=== PATIENT | male | born 1930 | race Caucasian/White ===

== ENCOUNTER → 2017-03-05 | Outpatient (CLI) | payer MEDICARE ==
[~2017-03-05] MED LIST: ASPI1TAB2 PO; DIAZ5TAB PO; POTASSIUM; TRIAMTERENE
== END | disposition home or self-care (01) ==
LOC: STAR 08:49
PROVIDERS: ATTEND Orthopaedic Surgery
DX: Z01.818 Encounter for other preprocedural examination (principal); M17.11 Unilateral primary osteoarthritis, right knee
CPT/HCPCS: 87081

== ENCOUNTER 2017-03-17 07:31 | Inpatient (IN) | payer MEDICARE ==
[~2017-03-17] VITALS: Ht 175.3 cm; Wt 83.1 kg
[~2017-03-17 07:31] MED LIST changes: +ASPI-691 PO; -ASPI1TAB2 PO; +EPINEPHRINE 1 MG/ML, 1ML ONE; +KETOROLAC 60 MG/2 ML ONE; +ROPIvacaine/PF 0.2%, 20 ML ONE; +SODIUM CHLORIDE 0.9% 50 ML ONE; +TRANEXAMIC ACID 100 MG/ML, 10ML ONE
[2017-03-17 08:17] VITALS: BP 174/83
[2017-03-17] MEDS ORDERED: LACTATED RINGERS 1,000 ML IV SCH (08:22)
[2017-03-17] MEDS ORDERED: PROMETHAZINE 25 MG/ML, 1ML IV PRN (08:30)
[2017-03-17] MEDS ORDERED: ALBUTEROL SULFATE 2.5 MG/3 ML NPPB PRN (08:30)
[2017-03-17] MEDS ORDERED: MEPERIDINE/PF 25MG/0.5ML IVPush PRN (08:30)
[2017-03-17] MEDS ORDERED: DIAZEPAM 5 MG/ML, 2ML IVPush PRN (08:30)
[2017-03-17] MEDS ORDERED: ONDANSETRON 2MG/ML, 2ML IVPush PRN (08:30)
[2017-03-17] MEDS ORDERED: ACETAMINOPHEN 325 MG TABLET PO PRN (08:30)
[2017-03-17] MEDS ORDERED: LABETALOL 5MG/ML, 20ML IV PRN (08:30)
[2017-03-17] MEDS ORDERED: EPHEDRINE 50 MG/ML, 1ML IVPush PRN (08:30)
[2017-03-17] MEDS ORDERED: HYDROcodone/APAP 7.5-325MG/15ML UDC PO PRN (08:30)
[2017-03-17] MEDS ORDERED: OXYcodone 5 MG/5 ML ORAL.SOL UDC PO PRN (08:30)
[2017-03-17] MEDS ORDERED: FENTANYL PF 100 MCG/2ML IV PRN (08:30)
[2017-03-17] MEDS ORDERED: HYDROmorphone 1 MG/ML, 1ML IV PRN ×2 (08:30→09:30)
[2017-03-17] MEDS ORDERED: METOPROLOL 1 MG/ML, 5ML IV PRN (08:30)
[2017-03-17] MEDS ORDERED: hydrALAzine 20 MG/ML, 1ML IV PRN ×2 (08:30→18:30)
[2017-03-17] MEDS: D5%-0.45% NACL 1,000 ML IV SCH (09:07)
[2017-03-17] MEDS ORDERED: ONDANSETRON 2MG/ML, 2ML IV PRN (09:30)
[2017-03-17] MEDS ORDERED: ONDANSETRON 4 MG TABLET PO PRN (09:30)
[2017-03-17] MEDS ORDERED: SCOPOLAMINE PATCH, 1.5MG PATCH.TD72 TD SCH (09:30)
[2017-03-17] MEDS ORDERED: MAGNESIUM HYDROXIDE 8%, 30ML UDC PO PRN (09:30)
[2017-03-17] MEDS ORDERED: PROMETHAZINE 25 MG/ML, 1ML IM PRN (09:30)
[2017-03-17] MEDS ORDERED: LORazepam 1MG TABLET PO PRN (09:30)
[2017-03-17] MEDS ORDERED: SENNA/DOCUSATE TABLET PO PRN (09:30)
[2017-03-17] MEDS ORDERED: ZOLPIDEM 5MG TABLET PO PRN (09:30)
[2017-03-17] MEDS ORDERED: BISACODYL 10 MG SUPP PR PRN (09:30)
[2017-03-17] MEDS ORDERED: PROMETHAZINE 12.5 MG SUPP PR PRN (09:30)
[2017-03-17] MEDS ORDERED: DIPHENHYDRAMINE 50 MG CAPSULE PO PRN (09:30)
[2017-03-17] MEDS ORDERED: OXYcodone IR 5MG TABLET PO PRN (09:30)
[2017-03-17] MEDS ORDERED: ALUMINUM/MAG/SIMETHICONE 30 ML UDC PO PRN (09:30)
[2017-03-17] MEDS ORDERED: DIAZEPAM 5 MG TABLET PO PRN (09:30)
[2017-03-17] MEDS ORDERED: PROPOFOL 10 MG/ML, 20ML ONE (09:38)
[2017-03-17] MEDS ORDERED: ONDANSETRON 2MG/ML, 2ML ONE (09:38)
[2017-03-17] MEDS ORDERED: MIDAZOLAM 1 MG/ML, 2ML ONE (09:38)
[2017-03-17] MEDS ORDERED: DEXAMETHASONE 4 MG/ML, 1ML ONE (09:38)
[2017-03-17] MEDS ORDERED: CEFAZOLIN 1,000 MG ONE (09:38)
[2017-03-17] MEDS ORDERED: FENTANYL PF 100 MCG/2ML ONE (09:38)
[2017-03-17] MEDS ORDERED: TRANEXAMIC ACID 1,000 MG in SODIUM CHLORIDE 0.9% 100 ML IVPB ONE (12:15)
[2017-03-17] MEDS ORDERED: SCOPOLAMINE PATCH, 1MG PATCH.TD72 TD SCH (14:30)
[2017-03-17] MEDS: ACETAMINOPHEN 500 MG TABLET PO SCH ×2 (14:45→22:34)
[2017-03-17] MEDS: TAMSULOSIN 0.4 MG CAP.ER.24H PO SCH (14:45)
[2017-03-17] MEDS ORDERED: SODIUM CHLORIDE 0.9% 1,000 ML IVBOLUS ONE (17:00)
[2017-03-17 18:11] LABS: HEMATOCRIT 45.9 % (39.2-51.8); HEMOGLOBIN 15.4 g/dL (13.7-18.0); WHITE BLOOD COUNT 13.9 x10^3/uL (3.4-10)
[2017-03-17] MEDS: ASPIRIN 81 MG TABLET EC PO SCH (18:17)
[2017-03-17] MEDS: CEFAZOLIN PMX 2GM/50ML 50 ML IVPB SCH (18:17)
[2017-03-17 18:20] LABS: DIFF TOTAL CELLS COUNTED 100 CELL DIFF
[2017-03-17 18:22] LABS: BLOOD UREA NITROGEN 14 mg/dL (7-18)
[2017-03-17 18:25] LABS: ASPARTATE AMINO TRANSFERASE 18 U/L (15-37)
[2017-03-17 18:29] LABS: IS PT STATUS REG ER OR PRE ER? NO
[2017-03-17 18:45] LABS: VERIFY COUNTS? YES
[2017-03-17 20:38] VITALS: BP 111/67
[2017-03-18 00:22] VITALS: BP 103/53
[2017-03-18] MEDS ORDERED: POTASSIUM CHLORIDE 20 MEQ TAB.ER.PRT PO ONE (00:30)
[2017-03-18] MEDS: CEFAZOLIN PMX 2GM/50ML 50 ML IVPB SCH (01:42)
[2017-03-18] MEDS: D5%-0.45% NACL 1,000 ML IV SCH ×2 (01:42→11:30)
[2017-03-18 05:03] VITALS: BP 116/65
[2017-03-18 05:12] VITALS: BP 116/65
[2017-03-18] MEDS ORDERED: DEXAMETHASONE 4 MG/ML, 1ML IVPush SCH (06:00)
[2017-03-18] MEDS: ASPIRIN 81 MG TABLET EC PO SCH (06:01)
[2017-03-18] MEDS: ACETAMINOPHEN 500 MG TABLET PO SCH ×2 (06:01→13:58)
[2017-03-18 06:20] LABS: BLOOD UREA NITROGEN 18 mg/dL (7-18)
[2017-03-18 07:17] VITALS: BP 133/70
[2017-03-18] MEDS: TAMSULOSIN 0.4 MG CAP.ER.24H PO SCH (08:44)
[2017-03-18] MEDS ORDERED: DOCUSATE 100 MG CAPSULE PO SCH (09:00)
[2017-03-18] MEDS ORDERED: TRIAMTERENE-HCTZ 37.5/25 MG TABLET PO SCH (09:00)
[2017-03-18] MEDS ORDERED: KETOROLAC 30 MG/1 ML IV SCH (09:30)
[2017-03-18 14:53] VITALS: BP 147/71
[2017-03-18] MEDS ORDERED: OXYC5CAP2 PO (15:02)
== END 2017-03-18 15:15 | disposition home or self-care (01) | DRG 470 ==
LOC: ORIP 07:31 → 4NOR 13:26 → DCLOUNGE 03-18 14:57
PROVIDERS: ADMIT Orthopaedic Surgery; ATTEND Orthopaedic Surgery
PROC: 0SRC0J9 Replacement of Right Knee Joint with Synthetic Substitute, Cemented, Open Approach (ICD-10-PCS; principal; 2017-03-17 10:30)
DX: M17.11 Unilateral primary osteoarthritis, right knee (principal); I10 Essential (primary) hypertension; R32 Unspecified urinary incontinence; R55 Syncope and collapse; F41.9 Anxiety disorder, unspecified; Z82.0 Family history of epilepsy and other diseases of the nervous system; Z85.46 Personal history of malignant neoplasm of prostate; Z90.79 Acquired absence of other genital organ(s); Z92.3 Personal history of irradiation
CPT/HCPCS: 36415; 70450; 71010; 80048; 80053; 81003; 82040; 82962; 84484; 85018; 85025; 93005; C1713; J0171; J0690; J1100; J1885; J2250; J2405; J2704; J2795; J3010; C1776; J7030; J7120

== ENCOUNTER 2017-03-24 16:13 | Inpatient (IN) | payer MEDICARE ==
[~2017-03-24] VITALS: Ht 175.3 cm; Wt 80.8 kg
[~2017-03-24 16:13] MED LIST changes: -EPINEPHRINE 1 MG/ML, 1ML ONE; -KETOROLAC 60 MG/2 ML ONE; +OXYC5CAP2 PO; -ROPIvacaine/PF 0.2%, 20 ML ONE; -SODIUM CHLORIDE 0.9% 50 ML ONE; -TRANEXAMIC ACID 100 MG/ML, 10ML ONE
[2017-03-24] MEDS ORDERED: BACITRACIN 50,000 UNIT ONE (18:42)
[2017-03-24 18:53] LABS: HEMATOCRIT 40.4 % (39.2-51.8); HEMOGLOBIN 13.5 g/dL (13.7-18.0); WHITE BLOOD COUNT 7.9 x10^3/uL (3.4-10)
[2017-03-24] MEDS ORDERED: PROMETHAZINE 12.5 MG SUPP PR PRN (19:00)
[2017-03-24] MEDS ORDERED: DIPHENHYDRAMINE 50 MG CAPSULE PO PRN (19:00)
[2017-03-24] MEDS ORDERED: DIAZEPAM 5 MG TABLET PO SCH (19:00)
[2017-03-24] MEDS ORDERED: morphine SULFATE 10 MG/ML, 1ML IV PRN (19:00)
[2017-03-24] MEDS ORDERED: ONDANSETRON 2MG/ML, 2ML IV PRN (19:00)
[2017-03-24] MEDS ORDERED: HYDROcodone/APAP 5/325 TABLET PO PRN (19:00)
[2017-03-24] MEDS ORDERED: ACETAMINOPHEN 650 MG/20.3 ML UDC PO PRN (19:00)
[2017-03-24] MEDS ORDERED: VANCOMYCIN PER PHARMACY MC PRN (19:00)
[2017-03-24] MEDS ORDERED: MIDAZOLAM 1 MG/ML, 2ML ONE (19:04)
[2017-03-24] MEDS ORDERED: FENTANYL PF 100 MCG/2ML ONE (19:04)
[2017-03-24 19:07] LABS: BLOOD UREA NITROGEN 12 mg/dL (7-18)
[2017-03-24] MEDS ORDERED: ONDANSETRON 2MG/ML, 2ML ONE (19:07)
[2017-03-24] MEDS ORDERED: DEXAMETHASONE 4 MG/ML, 1ML ONE (19:07)
[2017-03-24] MEDS ORDERED: CEFAZOLIN 1,000 MG ONE (19:07)
[2017-03-24] MEDS ORDERED: hydrALAzine 20 MG/ML, 1ML IV PRN (19:30)
[2017-03-24] MEDS ORDERED: MIDAZOLAM 1 MG/ML, 2ML IV PRN (19:30)
[2017-03-24] MEDS ORDERED: FENTANYL PF 100 MCG/2ML IV PRN (19:30)
[2017-03-24] MEDS ORDERED: MEPERIDINE/PF 25MG/0.5ML IVPush PRN (19:30)
[2017-03-24] MEDS ORDERED: OXYcodone 5 MG/5 ML ORAL.SOL UDC PO PRN (19:30)
[2017-03-24] MEDS ORDERED: ALBUTEROL SULFATE 2.5 MG/3 ML NPPB PRN (19:30)
[2017-03-24] MEDS ORDERED: HYDROmorphone 1 MG/ML, 1ML IV PRN (19:30)
[2017-03-24] MEDS ORDERED: DIAZEPAM 5 MG/ML, 2ML IVPush PRN (19:30)
[2017-03-24] MEDS ORDERED: LABETALOL 5MG/ML, 20ML IV PRN (19:30)
[2017-03-24] MEDS ORDERED: HYDROcodone/APAP 7.5-325MG/15ML UDC PO PRN (19:30)
[2017-03-24] MEDS ORDERED: EPHEDRINE 50 MG/ML, 1ML IVPush PRN (19:30)
[2017-03-24] MEDS ORDERED: PLEASE ENTER HEIGHT AND WEIGHT MC SCH (19:30)
[2017-03-24] MEDS ORDERED: ACETAMINOPHEN 325 MG TABLET PO PRN (19:30)
[2017-03-24] MEDS ORDERED: ONDANSETRON 2MG/ML, 2ML IVPush PRN (19:30)
[2017-03-24] MEDS ORDERED: PROMETHAZINE 25 MG/ML, 1ML IV PRN (19:30)
[2017-03-24] MEDS ORDERED: METOPROLOL 1 MG/ML, 5ML IV PRN (19:30)
[2017-03-24] MEDS ORDERED: BACITRACIN 50,000 UNIT IRRIG ONE (19:36)
[2017-03-24] MEDS ORDERED: PHARMACOKINETIC CONSULTATION MC ONE (20:00)
[2017-03-24] MEDS ORDERED: PHARMACOKINETIC MONITORING MC PRN (20:00)
[2017-03-24] MEDS ORDERED: DIAZEPAM 5 MG TABLET PO PRN (20:00)
[2017-03-24] MEDS ORDERED: ACETAMINOPHEN 650 MG/20.3 ML UDC ONE (20:09)
[2017-03-24 20:36] VITALS: BP 174/80
[2017-03-24] MEDS ORDERED: TRANEXAMIC ACID 1,000 MG in SODIUM CHLORIDE 0.9% 100 ML IVPB ONE (21:00)
[2017-03-24] MEDS: DOCUSATE 100 MG CAPSULE PO SCH (21:07)
[2017-03-24] MEDS: VANCOMYCIN 1,400 MG in SODIUM CHLORIDE 0.9% 250 ML IV SCH (22:00)
[2017-03-24] MEDS: OXYcodone IR 5MG TABLET PO PRN (22:04)
[2017-03-24] MEDS: D5%-0.45% NACL 1,000 ML IV SCH (23:00)
[2017-03-24 23:33] VITALS: BP 129/72
[2017-03-25 03:04] VITALS: BP 119/66
[2017-03-25] MEDS: CEFAZOLIN PMX 1GM/50ML 50 ML IVPB SCH ×3 (03:30→20:04)
[2017-03-25] MEDS: D5%-0.45% NACL 1,000 ML IV SCH ×3 (04:19→23:00)
[2017-03-25 05:04] LABS: HEMATOCRIT 35.6 % (39.2-51.8); HEMOGLOBIN 12.1 g/dL (13.7-18.0); WHITE BLOOD COUNT 6.7 x10^3/uL (3.4-10)
[2017-03-25 05:11] LABS: BLOOD UREA NITROGEN 10 mg/dL (7-18)
[2017-03-25 06:26] VITALS: BP 129/69
[2017-03-25] MEDS: MULTIVITAMINS/MINERALS TABLET PO SCH (08:32)
[2017-03-25] MEDS: DOCUSATE 100 MG CAPSULE PO SCH ×2 (08:32→20:04)
[2017-03-25] MEDS ORDERED: ASA/APAP/ CAFFEINE TABLET PO PRN (09:00)
[2017-03-25 12:33] VITALS: BP 136/68
[2017-03-25 18:25] VITALS: BP 156/71
[2017-03-25] MEDS: OXYcodone IR 5MG TABLET PO PRN (20:04)
[2017-03-25] MEDS: VANCOMYCIN 1,400 MG in SODIUM CHLORIDE 0.9% 250 ML IV SCH (22:11)
[2017-03-26 01:59] VITALS: BP 150/79
[2017-03-26] MEDS: CEFAZOLIN PMX 1GM/50ML 50 ML IVPB SCH ×2 (03:34→12:04)
[2017-03-26] MEDS: OXYcodone IR 5MG TABLET PO PRN ×2 (06:05→12:31)
[2017-03-26] MEDS: D5%-0.45% NACL 1,000 ML IV SCH (06:35)
[2017-03-26 06:50] VITALS: BP 178/77
[2017-03-26] MEDS: DOCUSATE 100 MG CAPSULE PO SCH (08:32)
[2017-03-26] MEDS: MULTIVITAMINS/MINERALS TABLET PO SCH (08:32)
[2017-03-26] MEDS ORDERED: TRIAMTERENE-HCTZ 37.5/25 MG TABLET PO SCH (09:00)
[2017-03-26 11:45] VITALS: BP 151/83
[2017-03-26] MEDS ORDERED: DOXY100T PO (12:47)
== END 2017-03-26 13:00 | disposition home or self-care (01) | DRG 921 ==
LOC: OR 16:13 → 4NOR 18:17 → OR 18:57 → 4NOR 18:57 → DCLOUNGE 03-26 12:45
PROVIDERS: ADMIT Orthopaedic Surgery; ATTEND Orthopaedic Surgery
PROC: 0JCN0ZZ Extirpation of Matter from Right Lower Leg Subcutaneous Tissue and Fascia, Open Approach (ICD-10-PCS; principal; 2017-03-24 19:00)
DX: T81.30XA Disruption of wound, unspecified, initial encounter (principal); I10 Essential (primary) hypertension; Z85.46 Personal history of malignant neoplasm of prostate; Z92.3 Personal history of irradiation; Z96.659 Presence of unspecified artificial knee joint
CPT/HCPCS: 36415; 80048; 82565; 84520; 85025; 85610; 87070; 87075; 87176; 87205; 93005; J0690; J1100; J2250; J2405; J3010; J3370; J7050